=== PATIENT | male | born 1995 | race Caucasian/White ===

== ENCOUNTER → 2023-12-19 | Outpatient (CLI) | payer BC ==
--- NOTE | 2023-12-19 09:14 | US ---
EXAMINATION TYPE: US abdomen complete DATE OF EXAM: 12/19/2023 COMPARISON: NONE CLINICAL INDICATION: Male, 28 years old with history of R94.5 ABNORMAL RESULTS OF LIVER FUNCTION STUD IES; LFTs TECHNIQUE: Multiple sonographic images of the abdomen are obtained. FINDINGS: EXAM MEASUREMENTS: Liver Length: 15.7 cm Gallbladder Wall: 0.2 cm CBD: 0.3 cm Spleen: 12.0 cm Right Kidney: 10.1x5.4x5.9 cm Left Kidney: 11.5x5.0x4.7 cm Pancreas: Obscured by bowel gas Liver: upper limits, increased echogenicity and attenuation. Some areas of focal fatty sparing adjac ent to gallbladder Gallbladder: wnl Evidence for sonographic Nichols's sign: No CBD: wnl Spleen: wnl Right Kidney: No hydronephrosis or masses seen Left Kidney: No hydronephrosis or masses seen Upper IVC: wnl, as visualized Abd Aorta: wnl as visualized, mostly obscured by bowel and body habitus exam limited by bowel gas and body habitus The liver is homogenous increased echotexture and without dilated ducts cystic structures are without masses. The intrahepatic portion of the IVC is within normal limits. There is no evidence of forrest lithiasis. Common bile duct is unremarkable. . The spleen is unremarkable. Kidneys are symmetric and free of hydronephrosis. No renal lesions are seen. IMPRESSION: 1. No evidence for acute process. 2. Hepatic steatosis.
== END | disposition home or self-care (01) ==
LOC: RADUSWWP 08:11
PROVIDERS: ATTEND Family Medicine
DX: K76.0 Fatty (change of) liver, not elsewhere classified (principal); R94.5 Abnormal results of liver function studies
CPT/HCPCS: 76700

== ENCOUNTER → 2024-04-02 | Outpatient (CLI) | payer OTHER ==
--- NOTE | 2024-04-02 09:39 | MR ---
EXAMINATION TYPE: MR lumbar spine wo con DATE OF EXAM: 04/02/2024 8:05 AM CLINICAL INDICATION:Male, 29 years old with history of M54.30 sciatica pain; , Back Pain that travels down the Rt side COMPARISON: None TECHNIQUE: Multi planar, multi sequence imaging was performed utilizing: T1-weighted, T2-weighted, a nd turbo inversion recovery imaging of the lumbar spine. IV Contrast: cc . (None if empty) FINDINGS: Alignment: The lumbar vertebral bodies have preserved heights and alignment. Cord: The conus medullaris and the distal spinal cord appear unremarkable with regards to their signa l intensity and morphology. Bones/Discs: Mild degeneration changes throughout the spine with osteophyte formation and facet joint arthropathy. Intervertebral disc signal is maintained. T12-L1: No evidence of significant spinal canal stenosis or neural foraminal stenosis. L1-L2: No evidence of significant spinal canal stenosis or neural foraminal stenosis. L2-L3: No evidence of significant spinal canal stenosis or neural foraminal stenosis. L3-L4: No evidence of significant spinal canal stenosis or neural foraminal stenosis. L4-L5: Right central/subarticular disc protrusion. No evidence of significant spinal canal stenosis. This does abut the right forming nerves in the spinal cord. The neural foramen are patent. L5-S1: The disc has a rounded posterior morphology without significant spinal canal stenosis. Facet j oint arthropathy with mild bilateral neural foraminal stenosis. No significant spinal canal or neural foraminal stenosis in the remainder of the visualized levels. Other findings: None. IMPRESSION: L4-L5 right central/subarticular disc protrusion which abuts the forming nerves on the right. No evid ence for significant spinal canal or neural foraminal stenosis.
== END | disposition home or self-care (01) ==
LOC: RADMRIMAIN 06:34
PROVIDERS: ATTEND Family Medicine
DX: M51.16 Intervertebral disc disorders with radiculopathy, lumbar region (principal); M25.551 Pain in right hip; M21.2 Flexion deformity
CPT/HCPCS: 72148